=== PATIENT | female | born 1995 | race Two or more races ===

== ENCOUNTER → 2024-07-28 | Outpatient (REF) | payer OTHER, MEDICAID ==
[2024-07-28 17:50] LABS: BASO # 0.1 10^3/uL (0.0-0.2); BASO % 0.5 % (0.0-1.0); EOS # 0.1 10^3/uL (0.0-0.5); EOS % 0.7 % (0.0-3.0); HEMATOCRIT 30.6 % (36.0-47.0); HEMOGLOBIN 9.1 g/dl (12.0-15.5); LYMPH # 1.5 10^3/uL (1.5-5.0); LYMPH % 14.7 % (24.0-44.0); MEAN CORPUSCULAR HEMOGLOBIN 23.8 pg (27.0-33.0); MEAN CORPUSCULAR HGB CONC 29.7 g/dl (32.0-36.5); MEAN CORPUSCULAR VOLUME 80.1 fl (80.0-96.0); MONO # 0.6 10^3/uL (0.0-0.8); MONO % 5.6 % (2.0-8.0); NEUTROPHILS # 7.6 10^3/uL (1.5-8.5); NEUTROPHILS % 76.9 % (36.0-66.0); PLATELET COUNT, AUTOMATED 375 10^3/uL (150-450); RED BLOOD COUNT 3.82 10^6/uL (4.00-5.40); WHITE BLOOD COUNT 9.8 10^3/uL (4.0-10.0)
[2024-07-28 18:30] LABS: THYROID STIMULATING HORMONE 2.464 uIU/ML (0.55-4.78); TOTAL 25(OH) VITAMIN D 22.3 NG/ML (20.0-100.0)
[2024-07-28 18:32] LABS: FREE T4 0.97 NG/DL (0.89-1.76)
[2024-07-28 18:33] LABS: ALBUMIN 2.6 G/DL (3.2-5.2); ALKALINE PHOSPHATASE 186 U/L (35-104); ALT/SGPT 16 U/L (7.0-40); AST/SGOT 25 U/L (<34); BILIRUBIN,TOTAL 0.3 MG/DL (0.3-1.2); BLOOD UREA NITROGEN 11 MG/DL (9-23); CALCIUM LEVEL 8.5 MG/DL (8.5-10.1); CARBON DIOXIDE LEVEL 22 MMOL/L (20-31); CHLORIDE LEVEL 106 MMOL/L (98-107); CREATININE FOR GFR 0.43 MG/DL (0.55-1.30); GLOMERULAR FILTRATION RATE > 60.0 (>60); GLUCOSE, FASTING 75 MG/DL (60-100); POTASSIUM SERUM 4.1 MMOL/L (3.5-5.1); SODIUM LEVEL 137 MMOL/L (136-145); TOTAL PROTEIN 7.2 G/DL (5.7-8.2)
[2024-07-28 18:43] LABS: HCG, SERUM QUANTITATIVE 2014.6 MIU/ML (<4.2)
[2024-07-28 18:45] LABS: HEMOGLOBIN A1c 4.9 % (4.0-6.0)
== END ==
LOC: M LAB REF 17:15
PROVIDERS: ATTEND Physician Assistant
DX: Z33.1 Pregnant state, incidental (principal); E55.9 Vitamin D deficiency, unspecified

== ENCOUNTER 2024-08-07 20:14 | Emergency (ER) | payer OTHER, MEDICAID ==
[~2024-08-07] VITALS: Ht 157.5 cm; Wt 71.4 kg
[2024-08-07 20:16] VITALS: BP 121/79; TEMP 98.5; O2SAT 99
== END 2024-08-07 21:06 | disposition admitted as inpatient to this hospital (09) ==
LOC: M ED 20:14
DX: Z53.21 Procedure and treatment not carried out due to patient leaving prior to being seen by health care provider (principal)

== ENCOUNTER 2024-08-07 20:34 | Outpatient (CLI) | payer OTHER, MEDICAID ==
[~2024-08-07] VITALS: Ht 160 cm; Wt 70.8 kg
[2024-08-07 20:56] VITALS: BP 119/78
[2024-08-07 21:51] LABS: HEMATOCRIT 28.5 % (36.0-47.0); HEMOGLOBIN 8.6 g/dl (12.0-15.5); MEAN CORPUSCULAR HEMOGLOBIN 23.8 pg (27.0-33.0); MEAN CORPUSCULAR HGB CONC 30.2 g/dl (32.0-36.5); MEAN CORPUSCULAR VOLUME 78.9 fl (80.0-96.0); PLATELET COUNT, AUTOMATED 338 10^3/uL (150-450); RED BLOOD COUNT 3.61 10^6/uL (4.00-5.40); WHITE BLOOD COUNT 10.3 10^3/uL (4.0-10.0)
[2024-08-07 22:32] LABS: HEPATITIS B SURFACE ANTIGEN NEGATIVE (NEGATIVE)
[2024-08-07 22:45] LABS: HIV 1&2 SCREEN NEGATIVE (NEGATIVE)
[2024-08-07 23:59] VITALS: BP 119/70
== END 2024-08-08 | disposition home or self-care (01) ==
LOC: M LDO 20:34
PROVIDERS: ATTEND Advanced Practice Midwife
DX: O26.893 Other specified pregnancy related conditions, third trimester (principal); O09.33 Supervision of pregnancy with insufficient antenatal care, third trimester; O99.013 Anemia complicating pregnancy, third trimester; O26.23 Pregnancy care for patient with recurrent pregnancy loss, third trimester; R10.2 Pelvic and perineal pain; D50.9 Iron deficiency anemia, unspecified; Z3A.30 30 weeks gestation of pregnancy; Z75.8 Other problems related to medical facilities and other health care
CPT/HCPCS: 36415; 59025; 76811; 85027; 86762; 86780; 86803; 86850; 86900; 86901; 87081; 87086; 87186; 87340; 87389; 93976; G0463

== ENCOUNTER → 2024-08-13 | Outpatient (REF) | payer MEDICAID, OTHER ==
[2024-08-13 12:36] LABS: Trichomonas vaginalis (AMP) NOT DETECTED (NEGATIVE)
[2024-08-13 12:59] LABS: GC DNA AMPLIFICATION NEGATIVE (NEGATIVE)
== END ==
LOC: M SFHCWAGY 10:07
PROVIDERS: ATTEND Nurse Practitioner Family
DX: Z34.80 Encounter for supervision of other normal pregnancy, unspecified trimester (principal)

== ENCOUNTER 2024-08-21 15:24 | Outpatient (CLI) | payer OTHER ==
[~2024-08-21] VITALS: Ht 157.5 cm; Wt 73.6 kg
[~2024-08-21 15:24] MED LIST: ALBUTEROL SULFATE 2.5MG/0.5ML INH NEB SOLN INH PRN; EPINEPHrine INJ 1 MG/ML 1ML AMP IM PRN; diphenhydrAMINE 50MG/ML VIAL IV PRN; methylPREDNISolone 125MG 2ML VIAL IV PRN
[2024-08-21 15:30] VITALS: BP 130/61; O2SAT 100
[2024-08-21] MEDS: DIPHENHYDRAMINE 25 MG ONE (15:43)
[2024-08-21] MEDS: ACETAMINOPHEN 650 MG ONE (15:44)
[2024-08-21] MEDS: IRON SUCROSE 200MG IVP IV ONE (15:58)
[2024-08-21 16:38] VITALS: BP 127/72; O2SAT 98
== END 2024-08-21 16:40 ==
LOC: M INFU 15:24
PROVIDERS: ATTEND Nurse Practitioner Family
DX: D64.9 Anemia, unspecified (principal)
CPT/HCPCS: 96374; J1756

== ENCOUNTER 2024-08-28 15:55 | Outpatient (CLI) | payer OTHER ==
[2024-08-28 15:57] VITALS: BP 123/53; O2SAT 97
[2024-08-28] MEDS ORDERED: ACETAMINOPHEN 650 MG ONE (16:00)
[2024-08-28] MEDS ORDERED: diphenhydrAMINE 25MG CAP PO ONE (16:00)
[2024-08-28] MEDS: IRON SUCROSE 200 MG IVP IV ONE (16:06)
[2024-08-28 16:40] VITALS: BP 123/61; O2SAT 97
== END 2024-08-28 16:40 | disposition home or self-care (01) ==
LOC: M INFU 15:55
PROVIDERS: ATTEND Nurse Practitioner Family
DX: D64.9 Anemia, unspecified (principal)
CPT/HCPCS: 96374; J1756

== ENCOUNTER → 2024-09-17 | Outpatient (REF) | payer MEDICAID | LOC: M PLALAB 12:52 | PROVIDERS: ATTEND Nurse Practitioner Family | DX: Z36.89 Encounter for other specified antenatal screening (principal) ==

== ENCOUNTER → 2024-10-01 | Outpatient (CLI) | payer OTHER ==
[2024-10-01 14:23] LABS: HEMATOCRIT 36.6 % (36.0-47.0); HEMOGLOBIN 11.1 g/dl (12.0-15.5); MEAN CORPUSCULAR HEMOGLOBIN 25.8 pg (27.0-33.0); MEAN CORPUSCULAR HGB CONC 30.3 g/dl (32.0-36.5); MEAN CORPUSCULAR VOLUME 84.9 fl (80.0-96.0); PLATELET COUNT, AUTOMATED 303 10^3/uL (150-450); RED BLOOD COUNT 4.31 10^6/uL (4.00-5.40); WHITE BLOOD COUNT 8.5 10^3/uL (4.0-10.0)
== END ==
LOC: M PLALAB 09:43
PROVIDERS: ATTEND Nurse Practitioner Family
DX: D50.9 Iron deficiency anemia, unspecified (principal)

== ENCOUNTER 2024-10-02 13:33 | Emergency (ER) | payer OTHER ==
[2024-10-03] MEDS ORDERED: PRENTAB9 PO (08:00)
== END 2024-10-02 13:48 | disposition admitted as inpatient to this hospital (09) ==
LOC: M ED 13:33
DX: Z53.21 Procedure and treatment not carried out due to patient leaving prior to being seen by health care provider (principal)

== ENCOUNTER 2024-10-02 13:40 | Outpatient (CLI) | payer OTHER ==
[~2024-10-02] VITALS: Ht 157.5 cm; Wt 75.6 kg
[2024-10-02 14:22] VITALS: BP 114/69
[2024-10-03] MEDS ORDERED: PRENTAB9 PO (08:00)
== END 2024-10-02 15:10 | disposition home or self-care (01) ==
LOC: M LDO 13:40
PROVIDERS: ATTEND Advanced Practice Midwife
DX: O47.1 False labor at or after 37 completed weeks of gestation (principal); O26.893 Other specified pregnancy related conditions, third trimester; O99.820 Streptococcus B carrier state complicating pregnancy; O99.013 Anemia complicating pregnancy, third trimester; O09.33 Supervision of pregnancy with insufficient antenatal care, third trimester; N89.8 Other specified noninflammatory disorders of vagina; D50.9 Iron deficiency anemia, unspecified; R12 Heartburn; Z75.8 Other problems related to medical facilities and other health care; Z3A.38 38 weeks gestation of pregnancy
CPT/HCPCS: 59025; G0463

== ENCOUNTER 2024-10-03 06:22 | Emergency (ER) | payer OTHER ==
[2024-10-03] MEDS ORDERED: PRENTAB9 PO (08:00)
== END 2024-10-03 06:47 | disposition left against medical advice (07) ==
LOC: M ED 06:22
DX: Z53.21 Procedure and treatment not carried out due to patient leaving prior to being seen by health care provider (principal)